=== PATIENT | female | born 1965 | race Caucasian/White ===

== ENCOUNTER 2018-05-21 14:31 | Emergency (ER) | payer BC, OTHER ==
[~2018-05-21] VITALS: Ht 165.1 cm; Wt 97.7 kg
[2018-05-21 15:36] LABS: BASOPHILS % (AUTO) 0.5 % (0-1); EOSINOPHILS # (AUTO) 0.1 X10'3 (0-0.9); EOSINOPHILS % (AUTO) 1.4 % (0-6); HEMATOCRIT 43.8 % (35.0-45.0); HEMOGLOBIN 14.8 g/dl (12.0-16.0); LYMPHOCYTES # (AUTO) 1.5 X10'3 (1.1-4.8); LYMPHOCYTES % (AUTO) 24.4 % (21-51); MEAN CORPUSCULAR HEMOGLOBIN 28.8 PG (27.0-31.0); MEAN CORPUSCULAR HGB CONC 33.8 % (33.0-36.5); MEAN CORPUSCULAR VOLUME 85.3 FL (78-98); MEAN PLATELET VOLUME 7.6 FL (7.4-10.4); MONOCYTES # (AUTO) 0.4 X10'3 (0-0.9); MONOCYTES % (AUTO) 5.8 % (2-12); NEUTROPHILS # (AUTO) 4.1 X10'3 (1.8-7.7); NEUTROPHILS % (AUTO) 67.9 % (42-75); PLATELET COUNT 260 X10'3 (140-440); RED BLOOD COUNT 5.14 X10'6 (4.20-5.60); RED CELL DISTRIBUTION WIDTH 12.1 % (11.5-14.5); WHITE BLOOD COUNT 6.1 X10'3 (4.5-11.0)
[2018-05-21 15:39] LABS: PROTHROMBIN TIME 10.1 SECONDS (9.0-12.0)
[2018-05-21 15:45] LABS: ALANINE AMINOTRANSFERASE 29 U/L (12-78); ALBUMIN 3.8 G/DL (3.4-5.0); ALKALINE PHOSPHATASE 77 IU/L (46-116); ANION GAP 6 (8-16); ASPARTATE AMINO TRANSFERASE 15 U/L (10-37); BILIRUBIN,TOTAL 0.4 MG/DL (0.1-1.0); BLOOD UREA NITROGEN 8 MG/DL (7-18); BUN/CREATININE RATIO 11.3 (6.6-38.0); CALCIUM 9.2 MG/DL (8.5-10.1); CHLORIDE 99 MMOL/L (99-107); CREATININE 0.71 MG/DL (0.40-0.90); GLUCOSE 101 MG/DL (70-104); LIPASE 315 U/L (73-393); POTASSIUM 3.8 MMOL/L (3.5-5.1); SODIUM 136 MMOL/L (135-145); TOTAL CARBON DIOXIDE 30.7 MMOL/L (24-32); TOTAL PROTEIN 7.7 G/DL (6.4-8.2); eGFR 86 ML/MIN
[2018-05-21 16:32] LABS: URINE HCG NEGATIVE (NEG)
[2018-05-21 16:36] LABS: CLARITY,URINE Clear (Clear); COLOR,URINE Yellow (Yellow); GLUCOSE, URINE Negative (Neg); KETONES,URINE Negative (Neg); LEUKOCYTE ESTERASE ,URINE Trace (Neg); NITRITES, URINE Negative (Neg); OCCULT BLOOD,URINE Negative (Neg); PROTEIN,URINE Negative (Neg)
[2018-05-21 16:38] LABS: UA COLLECTION TYPE CLN CATCH MIDSTREAM
[2018-05-21 16:47] LABS: BACTERIA,URINE NONE SEEN /HPF (Neg); RBC,URINE NONE SEEN /HPF (0-2); SQUAMOUS EPITHELIAL CELL,UR FEW /LPF (FEW); WBC,URINE 0-4 /HPF (0-4)
[2018-05-21 17:30] VITALS: BP 156/77
[2018-05-21] MEDS ORDERED: ondansetron 4mg rapidly disintigrating tab PO ONE (18:30)
[2018-05-21] MEDS ORDERED: CIPR-259 PO (18:38)
[2018-05-21] MEDS ORDERED: morphine 4 MG/ML inj SYRINge IM ONE (18:40)
[2018-05-21] MEDS ORDERED: HYDROcodone/acetaminophen 5mg/325mg tablet PO ONE (18:40)
[2018-05-21] MEDS ORDERED: ketorolac trometh inj. 60 MG/2 ML VIAL IM ONE (18:40)
== END 2018-05-21 19:06 | disposition home or self-care (01) ==
LOC: ER 14:32
DX: I88.0 Nonspecific mesenteric lymphadenitis (principal); R10.84 Generalized abdominal pain; K21.9 Gastro-esophageal reflux disease without esophagitis
CPT/HCPCS: 36415; 80053; 81001; 81025; 83690; 85025; 85610; 87088; 96372; 99284; J1885; J2270

== ENCOUNTER 2019-08-20 17:53 | Emergency (ER) | payer BC, OTHER ==
[~2019-08-20] VITALS: Ht 165.1 cm; Wt 84.1 kg
[2019-08-20 17:56] VITALS: BP 147/73
[2019-08-20] MEDS ORDERED: IBUP-1984 PO (20:24)
== END 2019-08-20 20:49 | disposition home or self-care (01) ==
LOC: ER 17:55
DX: S83.92XA Sprain of unspecified site of left knee, initial encounter (principal); K21.9 Gastro-esophageal reflux disease without esophagitis; Z79.1 Long term (current) use of non-steroidal anti-inflammatories (NSAID); W18.39XA Other fall on same level, initial encounter; Y93.89 Activity, other specified; Y92.89 Other specified places as the place of occurrence of the external cause; Y99.0 Civilian activity done for income or pay
CPT/HCPCS: 29505; 73564; 99283

== ENCOUNTER 2022-01-13 08:48 | Outpatient (CLI) | payer BC ==
[2022-01-13 09:31] LABS: BASOPHILS % (AUTO) 0.6 % (0-1); CLARITY,URINE CLEAR (Clear); COLOR,URINE YELLOW (Yellow); EOSINOPHILS # (AUTO) 0.1 X10'3 (0-0.9); EOSINOPHILS % (AUTO) 2.2 % (0-6); GLUCOSE, URINE NEGATIVE (Neg); HEMATOCRIT 40.8 % (35.0-45.0); HEMOGLOBIN 14.1 g/dl (12.0-16.0); KETONES,URINE NEGATIVE (Neg); LEUKOCYTE ESTERASE ,URINE SMALL (Neg); LYMPHOCYTES % (AUTO) 36.1 % (21-51); MEAN CORPUSCULAR HEMOGLOBIN 29.4 PG (27.0-31.0); MEAN CORPUSCULAR HGB CONC 34.5 g/dL (33.0-36.5); MEAN CORPUSCULAR VOLUME 85.3 FL (78-98); MEAN PLATELET VOLUME 6.7 FL (7.4-10.4); MONOCYTES # (AUTO) 0.3 X10'3 (0-0.9); MONOCYTES % (AUTO) 5.5 % (2-12); NEUTROPHILS # (AUTO) 3.1 X10'3 (1.8-7.7); NEUTROPHILS % (AUTO) 55.6 % (42-75); NITRITES, URINE NEGATIVE (Neg); OCCULT BLOOD,URINE NEGATIVE (Neg); PLATELET COUNT 250 X10'3 (140-440); PROTEIN,URINE NEGATIVE (Neg); RED BLOOD COUNT 4.79 X10'6 (4.20-5.60); RED CELL DISTRIBUTION WIDTH 13.4 % (11.5-14.5); UROBILINOGEN,URINE 0.2 E.U/dL (0.2-1.0); WHITE BLOOD COUNT 5.6 X10'3 (4.5-11.0)
[2022-01-13 09:34] LABS: UA COLLECTION TYPE CLN CATCH MIDSTREAM
[2022-01-13 09:38] LABS: BACTERIA,URINE FEW /HPF (Neg); MUCUS STRANDS FEW /LPF (Neg); RBC,URINE 0-2 /HPF (0-2); SQUAMOUS EPITHELIAL CELL,UR MANY /LPF (FEW)
[2022-01-13 09:39] LABS: ALANINE AMINOTRANSFERASE 32 U/L (12-78); ALBUMIN 3.9 G/DL (3.4-5.0); ALBUMIN/GLOBULIN RATIO 1.1 (1.1-1.5); ALKALINE PHOSPHATASE 72 IU/L (46-116); ANION GAP 12 (8-16); ASPARTATE AMINO TRANSFERASE 19 U/L (10-37); BILIRUBIN,TOTAL 0.5 MG/DL (0.1-1.0); BLOOD UREA NITROGEN 15 MG/DL (7-18); BUN/CREATININE RATIO 17.6 (6.6-38.0); CALCIUM 8.9 MG/DL (8.5-10.1); CHLORIDE 104 MMOL/L (99-107); CREATININE 0.85 MG/DL (0.40-0.90); GLUCOSE 97 MG/DL (70-104); POTASSIUM 3.8 MMOL/L (3.5-5.1); SODIUM 141 MMOL/L (135-145); TOTAL CARBON DIOXIDE 25.5 MMOL/L (24-32); TOTAL PROTEIN 7.5 G/DL (6.4-8.2); eGFR 69 ML/MIN
[2022-01-13 09:40] LABS: CHOLESTEROL 245 MG/DL (0-200); HDL CHOLESTEROL 61 MG/DL (35-60); LDL CHOLESTEROL 160 MG/DL (50-100); TRIGLYCERIDES 150 MG/DL (20-135)
== END 2022-01-13 23:59 | disposition home or self-care (01) ==
LOC: LAB 08:48
PROVIDERS: ATTEND Physician Assistant
DX: Z76.89 Persons encountering health services in other specified circumstances (principal)
CPT/HCPCS: 36415; 80053; 80061; 81001; 85025

== ENCOUNTER 2022-10-13 07:03 | Emergency (ER) | payer BC ==
[~2022-10-13] VITALS: Ht 165.1 cm; Wt 91.8 kg
[2022-10-13] MEDS ORDERED: CYCL-1 PO (08:28)
[2022-10-13] MEDS ORDERED: HYDR-3965 PO (08:28)
[2022-10-13] MEDS ORDERED: acetaminophen 325mg tablet PO ONE (08:30)
[2022-10-13 08:37] VITALS: BP 144/81
== END 2022-10-13 08:39 | disposition home or self-care (01) ==
LOC: ER 07:04
DX: S39.012A Strain of muscle, fascia and tendon of lower back, initial encounter (principal); M62.830 Muscle spasm of back; K21.9 Gastro-esophageal reflux disease without esophagitis; Z79.899 Other long term (current) drug therapy; W18.39XA Other fall on same level, initial encounter; Y93.89 Activity, other specified; Y92.89 Other specified places as the place of occurrence of the external cause; Y99.8 Other external cause status
CPT/HCPCS: 99283

== ENCOUNTER 2022-10-21 09:06 | Emergency (ER) | payer BC ==
[~2022-10-21] VITALS: Ht 165.1 cm; Wt 100.0 kg
[~2022-10-21 09:06] MED LIST: CYCL-1 PO; HYDR-3965 PO
[2022-10-21 09:16] VITALS: BP 141/87
[2022-10-21] MEDS ORDERED: LIDOcaine Viscous 15ml cup MM STA (09:31)
[2022-10-21] MEDS ORDERED: AMOX-580 PO (09:45)
[2022-10-21] MEDS ORDERED: amox tr/potassium clavulanate 875/125mg TAB PO ONE (09:45)
== END 2022-10-21 10:23 | disposition home or self-care (01) ==
LOC: ER 09:07
DX: K04.7 Periapical abscess without sinus (principal); K21.9 Gastro-esophageal reflux disease without esophagitis
CPT/HCPCS: 41800; 99284; A6449

== ENCOUNTER 2024-03-12 07:14 | Emergency (ER) | payer BC ==
[~2024-03-12] VITALS: Ht 165.1 cm; Wt 102.5 kg
[~2024-03-12 07:14] MED LIST changes: -HYDR-3965 PO
[2024-03-12 07:15] VITALS: BP 158/80; PULSE 73; TEMP 97.5; O2SAT 96
[2024-03-12 08:15] VITALS: RESP 16
[2024-03-12] MEDS: ketorolac tromethamine 15mg/ml inj. IM ONE (08:15)
[2024-03-12] MEDS ORDERED: CYCL-1 PO (08:34)
[2024-03-12] MEDS: cyclobenzaprine 10mg tablet PO ONE (08:40)
== END 2024-03-12 08:41 | disposition home or self-care (01) ==
LOC: EEVIPCON 07:14 → ER 07:14
DX: M62.830 Muscle spasm of back (principal); M54.50 Low back pain, unspecified; K21.9 Gastro-esophageal reflux disease without esophagitis; Z79.899 Other long term (current) drug therapy
CPT/HCPCS: 96372; 99283; J1885

== ENCOUNTER 2024-10-24 11:10 | Outpatient (CLI) | payer BC | END 2024-10-24 23:59 | disposition home or self-care (01) | LOC: RAD 11:10 | PROVIDERS: ATTEND Podiatrist Foot & Ankle Surgery | DX: M84.375A Stress fracture, left foot, initial encounter for fracture (principal); X58.XXXA Exposure to other specified factors, initial encounter; Y93.89 Activity, other specified; Y92.89 Other specified places as the place of occurrence of the external cause; Y99.8 Other external cause status | CPT/HCPCS: 73610; 73630 ==

== ENCOUNTER 2024-11-15 12:10 | Outpatient (CLI) | payer BC | END 2024-11-15 23:59 | disposition home or self-care (01) | LOC: MRI02 12:10 | PROVIDERS: ATTEND Student in an Organized Health Care Education/Training Program | DX: S83.8X2A Sprain of other specified parts of left knee, initial encounter (principal); M76.62 Achilles tendinitis, left leg; M25.572 Pain in left ankle and joints of left foot; X58.XXXA Exposure to other specified factors, initial encounter; Y93.89 Activity, other specified; Y92.89 Other specified places as the place of occurrence of the external cause; Y99.8 Other external cause status | CPT/HCPCS: 73721 ==